=== PATIENT | female | born 1965 | race Caucasian/White ===

== ENCOUNTER 2019-01-14 05:49 | Emergency (ER) | payer BC ==
[~2019-01-14] VITALS: Ht 157.5 cm; Wt 61.7 kg
--- NOTE | 2019-01-14 06:16 | NUR ---
CT PENDING BETA.
[2019-01-14] MEDS ORDERED: ONDANSETRON 2MG/ML, 2ML ONE (06:21)
[2019-01-14] MEDS ORDERED: HYDROmorphone 2 MG/ML, 1ML ONE ×3 (06:21→08:35)
[2019-01-14] MEDS ORDERED: KETOROLAC 30 MG/1 ML ONE (06:21)
[2019-01-14] MEDS: HYDROmorphone 2 MG/ML, 1ML IVPush PRN ×2 (06:23→07:10)
[2019-01-14 06:28] LABS: BASOPHILS # (AUTO) 0.05 x10^3/uL (0-0.1); BASOPHILS % (AUTO) 1 % (0-1); EOSINOPHILS # (AUTO) 0.35 x10^3/uL (0-0.4); EOSINOPHILS % (AUTO) 6 % (1-7); LYMPHOCYTES # (AUTO) 3.28 x10^3/uL (1-3.4); LYMPHOCYTES % (AUTO) 52 % (22-44); MD NO; MEAN CORPUSCULAR HEMOGLOBIN 30.3 pg (27.0-34.8); MEAN CORPUSCULAR HGB CONC 33.8 g/dL (32.4-35.8); MEAN CORPUSCULAR VOLUME 89.8 fL (80-100); MEAN PLATELET VOLUME 7.7 fL (7.4-10.4); MONOCYTES # (AUTO) 0.53 x10^3/uL (0.2-0.8); MONOCYTES % (AUTO) 9 % (2-9); NEUTROPHILS # (AUTO) 2.08 x10^3/uL (1.8-6.8); NEUTROPHILS % (AUTO) 33 % (42-75); PLATELET COUNT 284 x10^3/uL (130-400); RED BLOOD COUNT 4.25 x10^6/uL (3.82-5.3); RED CELL DISTRIBUTION WIDTH 12.9 % (9.6-15.2)
--- NOTE | 2019-01-14 06:29 | NUR ---
IV SITE STARTED, LABS DRAWN, PT MEDICATED PER MAR
[2019-01-14] MEDS ORDERED: ONDANSETRON 2MG/ML, 2ML IVPush ONE (06:30)
[2019-01-14] MEDS ORDERED: KETOROLAC 30 MG/1 ML IVPush ONE (06:30)
[2019-01-14] MEDS ORDERED: SODIUM CHLORIDE FLUSH 10ML SYR IVF ONE ×2 (06:30→08:30)
[2019-01-14] MEDS ORDERED: PHEN100C PO (06:30)
[2019-01-14 06:37] LABS: ALANINE AMINOTRANSFERASE 27 U/L (12-78); ALBUMIN 3.6 g/dL (3.4-5.0); ANION GAP 4 mmol/L (5-15); CALCIUM 8.3 mg/dL (8.5-10.1); CHLORIDE 108 mmol/L (98-107); CREATININE 1.23 mg/dL (0.55-1.02)
[2019-01-14 06:40] LABS: ALKALINE PHOSPHATASE 92 U/L (45-117); TOTAL PROTEIN 7.1 g/dL (6.4-8.2)
[2019-01-14 06:45] LABS: BILIRUBIN,TOTAL < 0.1 mg/dL (0.2-1.0)
--- NOTE | 2019-01-14 06:51 | NUR ---
report given to yamilet braswell
--- NOTE | 2019-01-14 06:56 | NUR ---
PT TO CT.
--- NOTE | 2019-01-14 07:14 | NUR ---
BACK FROM CT. VSS. PT MEDICATED FOR PAIN PER MAR. RESTING COMFORTABLY IN GURNEY. PT AAO X 4, ALL FALL PRECAUTIONS IN PLACE. CALL LIGHT WITHIN REACH, AT BEDSIDE.
[2019-01-14 07:24] LABS: MICROSCOPIC AUTO
[2019-01-14 07:25] LABS: CULTURE INDICATED? YES
--- NOTE | 2019-01-14 08:08 | NUR ---
PT RESTING COMFORTABLY IN GURNEY. PT AAO X 4, ALL FALL PRECAUTIONS IN PLACE. CALL LIGHT WITHIN REACH, AT BEDSIDE.
[2019-01-14] MEDS ORDERED: CEFTRIAXONE PMX 1GM/50ML 50 ML IVPB ONE (08:30)
[2019-01-14] MEDS ORDERED: CEFTRIAXONE PMX 1GM/50ML 50 ML ONE (08:34)
--- NOTE | 2019-01-14 08:44 | NUR ---
PT MEDICATED PER SEP. VSS, RESTING COMFORTABLY IN [facility] WITH ALL PRECAUTIONS IN PLACE.
[2019-01-14 09:51] VITALS: BP 118/64
--- NOTE | 2019-01-14 09:52 | NUR ---
Patient/Caregiver given discharge instructions and they have confirmed that they understand the instructions. Patient ambulatory with steady gait.
== END 2019-01-14 09:53 | disposition home or self-care (01) ==
LOC: ED 08:27
DX: K80.20 Calculus of gallbladder without cholecystitis without obstruction (principal); N39.0 Urinary tract infection, site not specified; N20.0 Calculus of kidney; N83.201 Unspecified ovarian cyst, right side; G40.909 Epilepsy, unspecified, not intractable, without status epilepticus
CPT/HCPCS: 36415; 74176; 80053; 81001; 83605; 84703; 85025; 87077; 87086; 96365; 96375; 96376; 99284; J0696; J1170; J1885; J2405; 87186